=== PATIENT | female | born 1985 | race Caucasian/White ===

== ENCOUNTER 2017-08-06 09:18 | Emergency (ER) | payer SELFPAY ==
--- NOTE | 2017-08-06 09:41 | PDOC ---
History of Present Illness - General Chief Complaint: Headache Stated Complaint: HEAD ACHE,BLURRY VISION,NAUSEA X A FEW MONTHS Time Seen by Provider: 08/06/17 09:27 - History of Present Illness Initial Comments: 08/06/17 10:45 Chief complaint: Headache History of present illness: This is a 32-year-old with no significant past medical history who presents to the emergency department with greater than 3 month history of intermittent right posterior cervical headaches. Headaches come and go they do not occur to certain time of the day they usually last for several hours are usually relieved by Aleve. Today patient awoke with a typical right-sided posterior headache had a very transient few seconds episode of feeling right arm heaviness and nausea and blurry vision all symptoms lasted a few seconds and have all since resolved.. Headache did not respond to believe the patient came to the emergency department. Currently headache is moderate 6- 10 was not maximal at onset there is no associated fever neck stiffness rash. She has no neurologic complaints at this time. Past History - Past Medical History Allergies/Adverse Reactions: Allergies Allergy/AdvReac Type Severity Reaction Status Date / Time No Known Allergies Allergy Verified 08/06/17 09:21 Home Medications: Ambulatory Orders NK [No Known Home Medication] 08/06/17 Asthma: Yes COPD: No Other medical history: pt denies - Suicide/Smoking/Psychosocial Hx Smoking History: Never smoked Substance Use Type: None Review of Systems - Review of Systems Comments:: 08/06/17 10:45 ROS: A complete review of 10 out of 10 review of systems is taken and is negative apart from what is previously mentioned below and in the HPI. *Physical Exam - Physical Exam Comments: 08/06/17 10:45 Vitals: Triage Vital signs reviewed General Appearance: no acute distress, well nourished well developed, Head: Atraumatic, Eyes: Pupils equal reactive round, extraocular movement intact Ears: TM's normal bilaterally; Nose: Nares patent bilaterally;no nasal congestion Throat: Posterior oropharynx without erythema, mucous membranes moist, Neck: Supple;No Nucal rigidity Chest Wall: Nontender Cardiac: Regular rate and rhythym, no murmurs, no rubs, no gallops, Lungs: Clear to auscultation bilateral, good air movement bilaterally, Abdomen: Soft, non distended, normal bowel sounds, non tender to palpation Extremities: Full range of motion to all extremities, no cyanosis, clubbing, or edema Skin: Warm and dry, no rashes or lesions, no rash, no petechiae Neuro: AOX3; Cranial Nerves 2-12 grossly intact, Strength intact to all extremities, Sensation intact to all extremities,gait normal Psych: normal mood, normal affect Heart Score/ECG Review - ECG Impressions Comment:: 08/06/17 10:46 EKG performed at 10:08 AM on 08/06/2017 demonstrate a rate of 71 normal sinus rhythm W[place] 188 QRS 104 QTC 439. There are no ST elevations or T-wave inversions there is no evidence of Brugada, WPW, prolonged QT ED Treatment Course - LABORATORY CBC & Chemistry Diagram: 08/06/17 10:00 08/06/17 10:00 Medical Decision Making - Medical Decision Making 08/06/17 10:47 During no apparent distress with several month history of posterior headache Today with some very transient brief associated neurologic symptoms. Currently her neurologic examination is normal. She has no risk factors for TIA. We will perform an EKG to rule out A. fib we will check basic blood work and a CAT scan of her head. If patient's headache improves with basic medications ( Reglan Benadryl IV fluids) and there are acute findings on her head CT we will recommend that patient follow-up urgently with neurology this week to rule out other more serious etiologies such as MS. This was discussed at length with patient. She'll follow-up with neurology this week. She'll return to the ED immediately for any severe worsening symptoms or for any concerns. *DC/Admit/Observation/Transfer Diagnosis at time of Disposition: Headache Qualifiers: Headache type: unspecified Headache chronicity pattern: unspecified pattern Intractability: not intractable Qualified Code(s): R51 - Headache - Discharge Dispostion Condition at time of disposition: Stable Admit: No - Referrals Referrals: J Luis Palmer DO [Staff Physician] - - Patient Instructions Printed Discharge Instructions: DI for Headache Additional Instructions: Drink plenty of fluids. Take 2 tabs Aleve twice a day for the next 3 days. Call today to set up a follow-up appointment with Dr. Palmer neurology this week. Return to the emergency department for any severe worsening symptoms or for any concerns. - Post Discharge Activity Forms/Work/School Notes: Back to Work
[2017-08-06] MEDS ORDERED: SODIUM CHLORIDE 0.9% 1000 ML INFUS.BAG IV ONE (09:49)
[2017-08-06] MEDS ORDERED: METOCLOPRAMIDE HCL INJECTION 10 MG/2 ML VIAL IVPB ONE (09:49)
[2017-08-06 10:15] LABS: BASO % 0.9 % (0-2.0); EOS % 2.1 % (0-4.5); HEMATOCRIT 31.5 % (32.4-45.2); HEMOGLOBIN 9.4 GM/dl (10.7-15.3); LYMPH % 36.3 % (8-40); MCH 20.7 pg (25.7-33.7); MCHC 29.8 g/dl (32.0-36.0); MEAN CELL VOLUME 69.5 fl (80-96); MEAN PLT VOLUME 7.7 fl (7.5-11.1); MONO % 7.7 % (3.8-10.2); PLATELET COUNT 442 K/MM3 (134-434); RBC 4.54 M/mm3 (3.60-5.2); RDW 16.1 % (11.6-15.6); WHITE BLOOD COUNT 6.4 K/mm3 (4.0-10.8)
[2017-08-06 10:22] LABS: ANION GAP 6 (8-16); BLOOD UREA NITROGEN 14 mg/dl (7-18); CALCIUM 8.7 mg/dl (8.4-10.2); CHLORIDE 105 mmol/L (98-107); CO2 25 mmol/L (22-28); CREATININE 0.6 mg/dl (0.6-1.3); GLUCOSE,RANDOM 102 mg/dl (74-106); POTASSIUM 4.2 mmol/L (3.5-5.1); SODIUM 136 mmol/L (136-145)
[2017-08-06 10:31] LABS: URINE APPEARANCE Clear; URINE BILIRUBIN Negative (NEGATIVE); URINE GLUCOSE (UA) Negative (NEGATIVE); URINE KETONE Negative (NEGATIVE); URINE NITRITE Negative (NEGATIVE); URINE PROTEIN Negative (NEGATIVE); URINE UROBILINOGEN 0.2 (0.2-1.0)
[2017-08-06 10:33] LABS: URINE BLOOD 2+ (NEGATIVE); URINE COLOR YELLOW
[2017-08-06 10:34] LABS: HCG,QUALITATIVE URINE NEGATIVE
[2017-08-06 10:53] LABS: ADD RBC MORPHOLOGY YES
[2017-08-06] MEDS ORDERED: KETOROLAC TROMETHAMINE 30 MG/1 ML VIAL IVPUSH ONE (11:20)
[2017-08-06] MEDS ORDERED: KETOROLAC TROMETHAMINE 30 MG/1 ML VIAL ONE (11:39)
[2017-08-06 11:57] LABS: EPI CELLS FEW /HPF; URINE WBC 0-2 (0-5)
[2017-08-06 11:58] LABS: URINE BACTERIA FEW /hpf (NEGATIVE)
[2017-08-06 12:58] VITALS: BP 150/90; PULSE 80; TEMP 98.2; BMI 51.6
--- NOTE | 2017-08-06 14:54 | EKG ---
Test Reason : Blood Pressure : / mmHG Vent. Rate : 071 BPM Atrial Rate : 071 BPM P-R Int : 188 ms QRS Dur : 104 ms QT Int : 404 ms P-R-T Axes : 038 044 028 degrees QTc Int : 439 ms NORMAL SINUS RHYTHM NORMAL ECG NO PREVIOUS ECGS AVAILABLE Confirmed by TONNY GRIMM MD ([id number]) on 08/06/2017 2:53:47 PM Referred By: DR BURT Confirmed By:TONNY GRIMM MD
== END 2017-08-06 12:52 | disposition home or self-care (01) ==
LOC: FER 09:18
PROC: 3E0337Z Introduction of Electrolytic and Water Balance Substance into Peripheral Vein, Percutaneous Approach (ICD-10-PCS; principal; 2017-08-06)
PROC: 3E033GC Introduction of Other Therapeutic Substance into Peripheral Vein, Percutaneous Approach (ICD-10-PCS; 2017-08-06)
PROC: 3E0333Z Introduction of Anti-inflammatory into Peripheral Vein, Percutaneous Approach (ICD-10-PCS; 2017-08-06)
DX: R51 Headache (principal); J45.909 Unspecified asthma, uncomplicated
CPT/HCPCS: 36415; 70450-TC; 80048; 81003; 81015; 84703; 85025; 93005; 99282-25

== ENCOUNTER 2018-03-28 20:05 | Emergency (ER) | payer BC, OTHER ==
--- NOTE | 2018-03-28 20:08 | PDOC ---
History of Present Illness - General History Source: Patient Exam Limitations: No Limitations - History of Present Illness Initial Comments: 03/28/18 20:52 The patient is a 33 year old female, with significant PMH of asthma, who presents to the emergency department with right calf pain that began today. The patient states she had muscle spasm pain last night but pain progressively worsened at work today. The patient states she works at [employer] and a nurse evaluated her foot noticing swelling to the right calf . The patient report leg felt heavy and painful when elevated. She notes pain is exacerbated with movement and alleviated with rest. The patient states she has never experienced this pain in the past. The patient denies any recent travels, long trips, and numbness. The patient any blood clot or injury. The patient denies chest pain, shortness of breath, headache and dizziness. Denies fever, chills, nausea, vomit , diarrhea and constipation. Allergies: NKDA Past surgical history: None reported Social history: None reported PCP: Genesis Maldonado <Fabiola Joe - Last Filed: 03/28/18 21:32> <Kelin Adler - Last Filed: 03/28/18 23:21> - General Chief Complaint: Pain Stated Complaint: RIGHT CALF PAIN Time Seen by Provider: 03/28/18 20:07 Past History <Fabiola Joe - Last Filed: 03/28/18 21:32> - Past Medical History Asthma: Yes COPD: No - Suicide/Smoking/Psychosocial Hx Smoking History: Never smoked Substance Use Type: None <Kelin Adler - Last Filed: 03/28/18 23:21> - Past Medical History Allergies/Adverse Reactions: Allergies Allergy/AdvReac Type Severity Reaction Status Date / Time No Known Allergies Allergy Verified 03/28/18 20:06 Home Medications: Ambulatory Orders NK [No Known Home Medication] 08/06/17 Review of Systems - Review of Systems Able to Perform ROS?: Yes Comments:: 03/28/18 20:52 GENERAL/CONSTITUTIONAL: No fever or chills. No weakness. HEAD, EYES, EARS, NOSE AND THROAT: No change in vision. No ear pain or discharge. No sore throat. CARDIOVASCULAR: No chest pain or shortness of breath. RESPIRATORY: No cough, wheezing, or hemoptysis. GASTROINTESTINAL: No nausea, vomiting, diarrhea or constipation. GENITOURINARY: No dysuria, frequency, or change in urination. MUSCULOSKELETAL: +Right calf pain. No joint or muscle swelling or pain. No neck or back pain. SKIN: No rash NEUROLOGIC: No headache, vertigo, loss of consciousness, or change in strength/ sensation. ENDOCRINE: No increased thirst. No abnormal weight change. HEMATOLOGIC/LYMPHATIC: No anemia, easy bleeding, or history of blood clots. ALLERGIC/IMMUNOLOGIC: No hives or skin allergy. <HeathNorbertonilo - Last Filed: 03/28/18 21:32> *Physical Exam - Vital Signs Last Vital Signs Temp Pulse Resp BP Pulse Ox 98.2 F 86 18 134/77 98 03/28/18 20:06 03/28/18 20:06 03/28/18 20:06 03/28/18 20:06 03/28/18 20:06 - Physical Exam Comments: 03/28/18 20:53 GENERAL: Awake, alert, and fully oriented, in no acute distress HEAD: No signs of trauma EYES: PERRLA, EOMI, sclera anicteric, conjunctiva clear ENT: Auricles normal inspection, hearing grossly normal, nares patent, oropharynx clear without exudates. Moist mucosa NECK: Normal ROM, supple, no lymphadenopathy, JVD, or masses LUNGS: Breath sounds equal, clear to auscultation bilaterally. No wheezes, and no crackles HEART: Regular rate and rhythm, normal S1 and S2, no murmurs, rubs or gallops ABDOMEN: Soft, nontender, normoactive bowel sounds. No guarding, no rebound. No masses EXTREMITIES: +Right lower extremity- mild non pitting edema below the right knee. +Mild tenderness to palpation of the proximal posterior portion of the lower leg. No palpable cords or masses. +Mild tenderness to palpation of the posterior ankle. +Pain on active and passive dorsiflexion and plantar flexion of the foot. Foot was warm with excellent capillary refill.+Dorsal pedal palpable midfoot. NEUROLOGICAL: Cranial nerves II through XII grossly intact. Normal speech, normal gait SKIN: Warm, Dry, normal turgor, no rashes or lesions noted. <Fabiola Joe - Last Filed: 03/28/18 21:32> *DC/Admit/Observation/Transfer - Attestations Scribe Attestion: 03/28/18 20:53 Documentation prepared by Fabiola Joe, acting as biomedical repair technician for Kelin Adler MD. <Fabiola Joe - Last Filed: 03/28/18 21:32> <Keiln Adler - Last Filed: 03/28/18 23:21> Diagnosis at time of Disposition: Strain of calf muscle Qualifiers: Encounter type: initial encounter Laterality: right Qualified Code(s): S86.811A - Strain of other muscle(s) and tendon(s) at lower leg level, right leg , initial encounter - Discharge Dispostion Disposition: HOME Condition at time of disposition: Stable - Referrals Referrals: Jose Clark MD [Staff Physician] - 3 days - Patient Instructions Printed Discharge Instructions: Calf Muscle Strain Additional Instructions: Elevate/ice to right calf as much as possible Brad wrap during the day for the next 5 days Ibuprofen/naproxen/acetaminophen as needed for pain Follow-up with orthopedic group () if you have persistent soreness in leg Return to ER if you have severe pain/tenseness of the lower leg, as discussed Return to ER if you have numbness/tingling of your ankle or foot - Post Discharge Activity
[2018-03-28 20:27] VITALS: BP 134/77; PULSE 86; TEMP 98.2; BMI 49.4
== END 2018-03-28 23:28 | disposition home or self-care (01) ==
LOC: FER 20:05
DX: S86.811A Strain of other muscle(s) and tendon(s) at lower leg level, right leg, initial encounter (principal)
CPT/HCPCS: 93971-TC; 99282-25

== ENCOUNTER 2022-02-13 10:58 | Emergency (ER) | payer BC, OTHER ==
[2022-02-13 11:31] VITALS: BP 117/75; PULSE 77; TEMP 98.1; BMI 39.4
[2022-02-13] MEDS ORDERED: predniSONE 20 MG TABLET (UD) PO ONE (11:43)
[2022-02-13] MEDS ORDERED: predniSONE 20 MG TABLET (UD) ONE (11:47)
== END 2022-02-13 11:52 | disposition home or self-care (01) ==
LOC: FER 10:58
DX: J98.01 Acute bronchospasm (principal)
CPT/HCPCS: 99283-25

== ENCOUNTER 2022-05-10 23:34 | Emergency (ER) | payer OTHER ==
[2022-05-10 23:41] VITALS: BMI 25.8
[2022-05-10] MEDS ORDERED: ALBUTEROL SO4 2.5/IPRATROPIUM 0.5 INH SOL 3 ML VIAL.NEB. NEB SCH (23:45)
[2022-05-10] MEDS ORDERED: predniSONE 20 MG TABLET (UD) PO ONE (23:50)
[2022-05-10] MEDS ORDERED: ALBUTEROL SO4 2.5/IPRATROPIUM 0.5 INH SOL 3 ML VIAL.NEB. NEB ONE (23:52)
[2022-05-10] MEDS ORDERED: predniSONE 20 MG TABLET (UD) ONE (23:52)
[2022-05-10 23:57] VITALS: BP 120/86; PULSE 70; RESP 18; TEMP 98.2
== END 2022-05-11 01:18 | disposition home or self-care (01) ==
LOC: FER 23:34
PROC: 3E0F7GC Introduction of Other Therapeutic Substance into Respiratory Tract, Via Natural or Artificial Opening (ICD-10-PCS; principal; 2022-05-10)
DX: J45.909 Unspecified asthma, uncomplicated (principal)
CPT/HCPCS: 99284-25